=== PATIENT | male | born 1950 | race Caucasian/White ===

== ENCOUNTER 2016-04-22 02:00 | Inpatient (IN) | payer MEDICARE, BC ==
[~2016-04-22] VITALS: Ht 177.8 cm; Wt 91.0 kg
[2016-04-22] MEDS ORDERED: DUONEB INH ONE (04:29)
[2016-04-22] MEDS ORDERED: METHYLPRED SOD SUCC 125 MG/2 ML VIAL ONE (04:42)
[2016-04-22] MEDS ORDERED: DEXTROSE 50% SYRINGE 50 ML IV PRN (05:40)
[2016-04-22] MEDS ORDERED: GLUCAGON 1 MG VIAL IM PRN (05:40)
[2016-04-22 06:00] VITALS: BP_SYST 129; BP_SYST 140; RESP 22; TEMP 97.9
[2016-04-22 06:16] VITALS: Ht 177.8 cm; Wt 91.0 kg
[2016-04-22] MEDS ORDERED: NEB-ATROVENT INH SCH (07:00)
[2016-04-22] MEDS ORDERED: NEB-XOPENEX 0.63 MG/3 ML INH SCH (07:00)
[2016-04-22 08:21] VITALS: BP_SYST 158; RESP 16; TEMP 98.4
[2016-04-22] MEDS: NEB-BUDESONIDE 0.5 MG INH SCH ×2 (08:39→20:03)
[2016-04-22] MEDS: LEVOFLOXACIN 750 MG/150 ML 150 ML IV SCH (08:47)
[2016-04-22] MEDS: SACCHA BOULARDII 250MG CAP PO SCH ×2 (08:48→20:41)
[2016-04-22] MEDS ORDERED: METHYLPRED SOD SUCC 125 MG/2 ML VIAL IV SCH (09:00)
[2016-04-22] MEDS ORDERED: AZITHROMYCIN 500 MG in SODIUM CHLORIDE 0.9% 250 ML IV SCH (09:00)
[2016-04-22] MEDS: DUONEB INH SCH ×4 (10:43→23:15)
[2016-04-22] MEDS ORDERED: SERTRALINE 50 MG TAB PO SCH (10:47)
[2016-04-22 12:02] VITALS: BP_SYST 146; RESP 16; TEMP 97.4
[2016-04-22] MEDS: glipiZIDE 5 MG TAB PO SCH (12:10)
[2016-04-22] MEDS: SPIRONOLACTONE 25 MG TAB PO SCH (12:10)
[2016-04-22] MEDS: Carvedilol 6.25 MG TAB PO SCH ×2 (12:10→20:41)
[2016-04-22] MEDS: DIGOXIN 0.125 MG TAB PO SCH (12:10)
[2016-04-22] MEDS: SERTRALINE 50 MG TAB PO SCH (12:10)
[2016-04-22] MEDS: ENOXAPARIN 30 MG/0.3 ML SYR SUBQ SCH (12:11)
[2016-04-22] MEDS: OXYCODONE/APAP 7.5/325 TAB PO PRN ×2 (12:17→18:51)
[2016-04-22] MEDS: METHYLPRED SOD SUCC 125 MG/2 ML VIAL IV SCH ×3 (13:15→23:10)
[2016-04-22 16:00] VITALS: BP_SYST 106; RESP 16; TEMP 98.4
[2016-04-22 19:33] VITALS: BP_SYST 144; RESP 16; TEMP 98.6
[2016-04-22] MEDS: NEB-BROVANA 15 MCG/2 ML INH SCH (20:03)
[2016-04-22 23:06] VITALS: BP_SYST 125; RESP 16; TEMP 98
[2016-04-23] MEDS: OXYCODONE/APAP 7.5/325 TAB PO PRN ×4 (01:18→20:31)
[2016-04-23 02:54] VITALS: BP_SYST 146; RESP 16; TEMP 97.5
[2016-04-23] MEDS: PANTOPRAZOLE 40 MG TAB PO SCH (06:10)
[2016-04-23] MEDS: METHYLPRED SOD SUCC 125 MG/2 ML VIAL IV SCH ×4 (06:10→23:45)
[2016-04-23 07:11] VITALS: BP_SYST 138; RESP 18; TEMP 97.8
[2016-04-23] MEDS: NEB-BROVANA 15 MCG/2 ML INH SCH ×2 (07:20→19:51)
[2016-04-23] MEDS: NEB-BUDESONIDE 0.5 MG INH SCH ×2 (07:20→19:51)
[2016-04-23] MEDS: DUONEB INH SCH ×5 (07:20→23:00)
[2016-04-23] MEDS: SERTRALINE 50 MG TAB PO SCH (08:11)
[2016-04-23] MEDS: Carvedilol 6.25 MG TAB PO SCH ×2 (08:12→20:31)
[2016-04-23] MEDS: glipiZIDE 5 MG TAB PO SCH (08:12)
[2016-04-23] MEDS: SACCHA BOULARDII 250MG CAP PO SCH ×2 (08:12→20:30)
[2016-04-23] MEDS: LEVOFLOXACIN 750 MG/150 ML 150 ML IV SCH (08:13)
[2016-04-23] MEDS: ENOXAPARIN 30 MG/0.3 ML SYR SUBQ SCH (08:14)
[2016-04-23] MEDS ORDERED: MAGNESIUM SULF 1 GM/100 ML 100 ML IV ONE (10:20)
[2016-04-23] MEDS ORDERED: ERGOCALCIFEROL 50,000 UNITS (1.25 MG) CAP PO SCH (10:28)
[2016-04-23 11:04] VITALS: BP_SYST 123; RESP 18; TEMP 97.8
[2016-04-23] MEDS: MAG OXIDE 400 MG TAB PO SCH ×2 (12:27→20:31)
[2016-04-23] MEDS: DIGOXIN 0.125 MG TAB PO SCH (12:27)
[2016-04-23] MEDS: NITROGLYCERIN SL 0.4 MG TAB SL PRN ×2 (14:43→14:51)
[2016-04-23 14:50] VITALS: BP_SYST 141; RESP 16; TEMP 97.7
[2016-04-23] MEDS: ASPIRIN EC 325 MG TAB PO SCH (15:04)
[2016-04-23] MEDS ORDERED: ALU/MAG/SIM 30 ML UDC PO ONE (15:05)
[2016-04-23] MEDS: NITROGLYCERIN 2% OINT 1 INCH PKT TOPICAL SCH ×2 (17:46→23:45)
[2016-04-23 19:24] VITALS: BP_SYST 129; RESP 18; TEMP 98.6
[2016-04-23 23:02] VITALS: BP_SYST 124; RESP 18; TEMP 98
[2016-04-24] MEDS: OXYCODONE/APAP 7.5/325 TAB PO PRN ×4 (02:29→20:24)
[2016-04-24 02:56] VITALS: BP_SYST 135; RESP 18; TEMP 97.2
[2016-04-24] MEDS: METHYLPRED SOD SUCC 125 MG/2 ML VIAL IV SCH ×4 (05:35→23:42)
[2016-04-24] MEDS: NITROGLYCERIN 2% OINT 1 INCH PKT TOPICAL SCH ×4 (05:35→23:49)
[2016-04-24] MEDS: PANTOPRAZOLE 40 MG TAB PO SCH (05:35)
[2016-04-24] MEDS: DUONEB INH SCH ×5 (06:06→23:09)
[2016-04-24] MEDS: NEB-BUDESONIDE 0.5 MG INH SCH ×2 (06:06→19:31)
[2016-04-24] MEDS: NEB-BROVANA 15 MCG/2 ML INH SCH ×2 (06:06→19:31)
[2016-04-24 07:31] VITALS: BP_SYST 139; RESP 18; TEMP 98.4
[2016-04-24] MEDS: SERTRALINE 50 MG TAB PO SCH (09:04)
[2016-04-24] MEDS: SACCHA BOULARDII 250MG CAP PO SCH ×2 (09:04→20:24)
[2016-04-24] MEDS: glipiZIDE 5 MG TAB PO SCH (09:04)
[2016-04-24] MEDS: MAG OXIDE 400 MG TAB PO SCH ×2 (09:05→20:24)
[2016-04-24] MEDS: Carvedilol 6.25 MG TAB PO SCH ×2 (09:05→20:24)
[2016-04-24] MEDS: ENOXAPARIN 30 MG/0.3 ML SYR SUBQ SCH (09:06)
[2016-04-24] MEDS: LEVOFLOXACIN 750 MG/150 ML 150 ML IV SCH (09:06)
[2016-04-24] MEDS: ASPIRIN EC 325 MG TAB PO SCH (09:07)
[2016-04-24] MEDS: SPIRONOLACTONE 25 MG TAB PO SCH (09:07)
[2016-04-24 11:06] VITALS: BP_SYST 119; RESP 18; TEMP 98.3
[2016-04-24] MEDS: DIGOXIN 0.125 MG TAB PO SCH (12:21)
[2016-04-24 15:19] VITALS: BP_SYST 149; RESP 18; TEMP 98.7
[2016-04-24] MEDS ORDERED: BISACODYL EC 5 MG TAB PO PRN (18:20)
[2016-04-24] MEDS ORDERED: BISACODYL 10 MG SUPP RECTAL PRN (18:20)
[2016-04-24] MEDS ORDERED: MAG HYDROX 30 ML UDC PO PRN (18:20)
[2016-04-24] MEDS: POLYETHYLENE GLYCOL 17 GM PACKET PO SCH (18:22)
[2016-04-24 19:00] VITALS: BP_SYST 145; RESP 20; TEMP 98
[2016-04-25] VITALS (7 sets, daily range): BP systolic 116–159; RESP 18–20; TEMP 97.5–99.1
[2016-04-25] MEDS: OXYCODONE/APAP 7.5/325 TAB PO PRN ×4 (03:25→21:45)
[2016-04-25] MEDS: NITROGLYCERIN 2% OINT 1 INCH PKT TOPICAL SCH (04:56)
[2016-04-25] MEDS: METHYLPRED SOD SUCC 125 MG/2 ML VIAL IV SCH ×2 (05:52→21:22)
[2016-04-25] MEDS: PANTOPRAZOLE 40 MG TAB PO SCH (05:52)
[2016-04-25] MEDS: DUONEB INH SCH ×5 (07:06→23:03)
[2016-04-25] MEDS: NEB-BROVANA 15 MCG/2 ML INH SCH ×2 (07:06→18:52)
[2016-04-25] MEDS: NEB-BUDESONIDE 0.5 MG INH SCH ×2 (07:06→18:52)
[2016-04-25] MEDS: SACCHA BOULARDII 250MG CAP PO SCH ×2 (09:09→21:23)
[2016-04-25] MEDS: ASPIRIN EC 325 MG TAB PO SCH (09:10)
[2016-04-25] MEDS: SERTRALINE 50 MG TAB PO SCH (09:10)
[2016-04-25] MEDS: LEVOFLOXACIN 750 MG/150 ML 150 ML IV SCH (09:10)
[2016-04-25] MEDS: Carvedilol 6.25 MG TAB PO SCH ×2 (09:10→21:23)
[2016-04-25] MEDS: glipiZIDE 5 MG TAB PO SCH (09:10)
[2016-04-25] MEDS: MAG OXIDE 400 MG TAB PO SCH ×2 (09:10→21:23)
[2016-04-25] MEDS: ENOXAPARIN 30 MG/0.3 ML SYR SUBQ SCH (09:11)
[2016-04-25] MEDS: POLYETHYLENE GLYCOL 17 GM PACKET PO SCH (09:36)
[2016-04-25] MEDS: NITROGLYCERIN 0.4 MG/HR PATCH TRANSDERM SCH (09:37)
[2016-04-25] MEDS: DIGOXIN 0.125 MG TAB PO SCH (12:48)
[2016-04-25] MEDS ORDERED: FAMOTIDINE 20 MG TAB PO SCH (21:00)
[2016-04-26] MEDS: OXYCODONE/APAP 7.5/325 TAB PO PRN ×2 (04:21→11:00)
[2016-04-26 04:56] VITALS: BP_SYST 154; RESP 18; TEMP 98.1
[2016-04-26 07:53] VITALS: BP_SYST 156; RESP 18; TEMP 97.7
[2016-04-26] MEDS: METHYLPRED SOD SUCC 125 MG/2 ML VIAL IV SCH (07:56)
[2016-04-26] MEDS: PANTOPRAZOLE 40 MG TAB PO SCH (07:56)
[2016-04-26] MEDS: NEB-BUDESONIDE 0.5 MG INH SCH (08:00)
[2016-04-26] MEDS: NEB-BROVANA 15 MCG/2 ML INH SCH (08:01)
[2016-04-26] MEDS: DUONEB INH SCH ×2 (08:01→11:10)
[2016-04-26] MEDS: POLYETHYLENE GLYCOL 17 GM PACKET PO SCH (08:46)
[2016-04-26] MEDS: LEVOFLOXACIN 750 MG/150 ML 150 ML IV SCH (08:46)
[2016-04-26] MEDS: SACCHA BOULARDII 250MG CAP PO SCH (08:47)
[2016-04-26] MEDS: ENOXAPARIN 30 MG/0.3 ML SYR SUBQ SCH (08:47)
[2016-04-26] MEDS: SERTRALINE 50 MG TAB PO SCH (08:47)
[2016-04-26] MEDS: MAG OXIDE 400 MG TAB PO SCH (08:47)
[2016-04-26] MEDS: glipiZIDE 5 MG TAB PO SCH (08:48)
[2016-04-26] MEDS: Carvedilol 6.25 MG TAB PO SCH (08:48)
[2016-04-26] MEDS: ASPIRIN EC 325 MG TAB PO SCH (08:48)
[2016-04-26] MEDS: SPIRONOLACTONE 25 MG TAB PO SCH (08:48)
[2016-04-26] MEDS: NITROGLYCERIN 0.4 MG/HR PATCH TRANSDERM SCH (08:50)
[2016-04-26 11:02] VITALS: BP_SYST 127; RESP 18; TEMP 97.8
[2016-04-26 11:06] VITALS: BP_SYST 127; RESP 19; TEMP 97.8
== END 2016-04-26 11:28 | DRG 190 ==
LOC: ENRESERVDT → ENRESERV → ENRESERVTM → ER 02:00 → ENPENDDIS 04:50 → EMR 04:50 → 4THW 05:54
PROVIDERS: ADMIT Internal Medicine; ATTEND Internal Medicine
DX: J44.1 Chronic obstructive pulmonary disease with (acute) exacerbation (principal); J96.90 Respiratory failure, unspecified, unspecified whether with hypoxia or hypercapnia; I50.32 Chronic diastolic (congestive) heart failure; I42.9 Cardiomyopathy, unspecified; I11.0 Hypertensive heart disease with heart failure; K21.9 Gastro-esophageal reflux disease without esophagitis; E11.40 Type 2 diabetes mellitus with diabetic neuropathy, unspecified; F41.9 Anxiety disorder, unspecified; G89.29 Other chronic pain; R32 Unspecified urinary incontinence; E55.9 Vitamin D deficiency, unspecified; R00.0 Tachycardia, unspecified; Z95.0 Presence of cardiac pacemaker; Z85.46 Personal history of malignant neoplasm of prostate; Z87.891 Personal history of nicotine dependence
CPT/HCPCS: 36415; 36600; 71010; 80053; 80162; 82306; 82553; 82607; 82746; 82803; 82947; 83735; 83880; 84439; 84443; 84484; 85025; 93005; 94640; 94667; 96374